=== PATIENT | female | born 1945 | race American Indian/Alaskan Native ===

== ENCOUNTER 2022-07-18 15:33 | Emergency (ER) | payer MEDICARE ==
[2022-07-18 16:38] VITALS: BP 161/73
--- NOTE | 2022-07-18 17:34 | XRay Report ---
RIGHT FOOT 3 VIEWS INDICATION / CLINICAL INFORMATION: pain, redness. COMPARISON: None available. FINDINGS: BONES / JOINT(S): No acute fracture or subluxation. Moderate bunion first metatarsal head medially. M ild DJD first metatarsophalangeal joint. Chronic deformity at the tuft of the distal phalanx of the f irst digit. Underlying osteopenia. SOFT TISSUES: Atherosclerotic vascular calcification. ADDITIONAL FINDINGS: Hardware at the medial and lateral malleoli. Signer Name: Naveen Lane MD Signed: 07/18/2022 5:30 PM Workstation Name: [id number]
--- NOTE | 2022-07-18 18:04 | Vascular Lab Report ---
DUPLEX DOPPLER LOWER EXTREMITY VEINS, RIGHT INDICATION: pain, foot cold to touch. TECHNIQUE: Duplex doppler imaging was performed through the veins of the right lower extremity using venous comp ression and other maneuvers. COMPARISON: No relevant prior imaging study available. FINDINGS: Right Common femoral vein: Negative. Right Superficial femoral vein: Negative. Right Popliteal vein: Negative. Right Calf veins: Negative. Additional findings: None.. IMPRESSION: Negative for DVT. Signer Name: Naveen Lane MD Signed: 07/18/2022 6:00 PM Workstation Name: [id number]
[2022-07-18 18:36] LABS: INR 0.9 (0.87-1.13)
[2022-07-18 18:37] LABS: Partial Thromboplastin Time 26.8 Sec. (24.2-36.6)
[2022-07-18 18:40] LABS: Hematocrit 46.7 % (30.3-42.9); Hemoglobin 14.3 gm/dl (10.1-14.3); Mean Corpuscular HGB Conc 31 % (30-34); Mean Corpuscular Volume 89 fl (79-97); Platelet Count 240 K/mm3 (140-440); Red Blood Count 5.26 M/mm3 (3.65-5.03); Red Cell Distribution Width 22.7 % (13.2-15.2)
[2022-07-18 19:12] LABS: Anisocytosis 1+; Platelet Estimate Consistent w Auto; Total Cells Counted 100
[2022-07-18 19:49] LABS: Alanine Aminotransferase 13 units/L (7-56); Albumin 4.9 g/dL (3.9-5); Blood Urea Nitrogen 16 mg/dL (7-17); Calcium 9.6 mg/dL (8.4-10.2); Hemolysis Index 30
[2022-07-18 19:56] LABS: BUN/Creatinine Ratio 23
[2022-07-18] MEDS ORDERED: IBUPROFEN 400 MG TAB PO ONE (23:00)
[2022-07-18] MEDS ORDERED: ACETAMINOPHEN 325 MG TAB PO ONE (23:00)
--- NOTE | 2022-07-18 23:01 | Emergency Department Report ---
ED General Adult HPI - General Chief complaint: Extremity Problem,Nontraumatic Stated complaint: RT FOOT SWOLLEN PUI?: No Time Seen by Provider: 07/18/22 22:55 Source: patient Mode of arrival: Wheelchair Limitations: No Limitations - History of Present Illness Initial comments: This is a pleasant 77-year-old female came in today with concerns of right lower extremity swelling and pain. Patient denies any other trauma or injury. Patient's that this has been going for the past 2 weeks. Patient also states her right lower extremity feels cold. Patient denies any new symptoms denies fever chill night sweat dizziness blurred vision lightheadedness headache tinnitus ear pain runny nose sore throat loss of taste loss of smell chest pain palpitation short breath cough abdominal pain nausea vomiting diarrhea constipation new rash and heat or cold intolerance. Severity scale (0 -10): 9 - Related Data Previous Rx's Medication Instructions Recorded Last Taken Type ALBUTEROL Inhaler(NF) [VENTOLIN 1 puff IH Q4H PRN 30 Days inha 10/25/18 Unknown Rx Inhaler(NF)] Budesoni/Formotero 160-4.5(Nf) 2 puff IH BID 30 Days inha 10/25/18 Unknown Rx [Symbicort 160-4.5 (Nf)] amLODIPine 10 mg PO QDAY #30 tablet 10/25/18 Unknown Rx levoFLOXacin [Levaquin TAB] 750 mg PO QDAY #4 tablet 10/25/18 Unknown Rx predniSONE [Deltasone] 50 mg PO QDAY #5 tab 10/25/18 Unknown Rx metroNIDAZOLE [Flagyl] 500 mg PO Q12HR #10 tab 11/09/18 Unknown Rx Acetaminophen/Codeine [Tylenol 1 tab PO Q6H PRN #9 tab 07/18/22 Unknown Rx /Codeine # 3 tab] Allergies Allergy/AdvReac Type Severity Reaction Status Date / Time morphine Allergy Itching Verified 12/22/15 09:56 ED Review of Systems ROS: Stated complaint: RT FOOT SWOLLEN Other details as noted in HPI Comment: All other systems reviewed and negative Constitutional: no symptoms reported, see HPI Eyes: as per HPI ENT: as per HPI Respiratory: no symptoms reported, see HPI Cardiovascular: as per HPI Endocrine: no symptoms reported, see HPI Gastrointestinal: as per HPI, abdominal pain Musculoskeletal: as per HPI Skin: as per HPI Neurological: as per HPI Psychiatric: as per HPI Hematological/Lymphatic: as per HPI ED Past Medical Hx - Past Medical History Previous Medical History?: Yes Hx Hypertension: No Hx CVA: No Hx Heart Attack/AMI: No Hx Congestive Heart Failure: No Hx Diabetes: No Hx Deep Vein Thrombosis: No Hx Pulmonary Embolism: No Hx GERD: No Hx Liver Disease: No Hx Renal Disease: No Hx Sickle Cell Disease: No Hx Arthritis: Yes Hx Headaches / Migraines: No Hx Seizures: No Hx Kidney Stones: No Hx Psychiatric Treatment: No Hx Asthma: No Hx COPD: Yes Hx Tuberculosis: No Hx Dementia: No Hx HIV: No Additional medical history: pneumonia Dec 2015, OCT 22 2018 - Surgical History Hx Coronary Stent: No Hx Open Heart Surgery: No Hx Pacemaker: No Hx Internal Defibrillator: No Hx Cholecystectomy: No Hx Appendectomy: No Hx Breast Surgery: No Additional Surgical History: hysterectomy. left breast biopsy - Social History Smoking Status: Current Some Day Smoker Substance Use Type: None - Medications Home Medications: Home Medications Medication Instructions Recorded Confirmed Last Taken Type ALBUTEROL Inhaler(NF) [VENTOLIN 1 puff IH Q4H PRN 30 Days inha 10/25/18 Unknown Rx Inhaler(NF)] Budesoni/Formotero 160-4.5(Nf) 2 puff IH BID 30 Days inha 10/25/18 Unknown Rx [Symbicort 160-4.5 (Nf)] amLODIPine 10 mg PO QDAY #30 tablet 10/25/18 Unknown Rx levoFLOXacin [Levaquin TAB] 750 mg PO QDAY #4 tablet 10/25/18 Unknown Rx predniSONE [Deltasone] 50 mg PO QDAY #5 tab 10/25/18 Unknown Rx metroNIDAZOLE [Flagyl] 500 mg PO Q12HR #10 tab 11/09/18 Unknown Rx Acetaminophen/Codeine [Tylenol 1 tab PO Q6H PRN #9 tab 07/18/22 Unknown Rx /Codeine # 3 tab] ED Physical Exam - General Limitations: No Limitations General appearance: alert, in no apparent distress - Head Head exam: Present: atraumatic, normocephalic, normal inspection - Eye Eye exam: Present: normal appearance, PERRL, EOMI Pupils: Present: normal accommodation - ENT ENT exam: Present: normal exam - Neck Neck exam: Present: normal inspection, full ROM - Respiratory Respiratory exam: Present: normal lung sounds bilaterally - Cardiovascular Cardiovascular Exam: Present: regular rate, normal rhythm, normal heart sounds - GI/Abdominal GI/Abdominal exam: Present: soft - Extremities Exam Extremities exam: Present: normal inspection, full ROM, normal capillary refill - Expanded Lower Extremity Exam Right Hip exam: Present: full ROM Upper Leg exam: Present: normal inspection Knee exam: Present: normal inspection Lower Leg exam: Present: normal inspection Ankle exam: Present: normal inspection Foot/Toe exam: Present: normal inspection Neuro vascular tendon exam: Present: no vascular compromise (dorsal pedis pulse intact of right.) - Back Exam Back exam: Present: normal inspection, full ROM - Neurological Exam Neurological exam: Present: alert, oriented X3, CN II-XII intact - Psychiatric Psychiatric exam: Present: normal affect, normal mood - Skin Skin exam: Present: warm, normal color ED Course Vital Signs 07/18/22 16:32 Temperature 98.6 F Pulse Rate 102 H Respiratory 18 Rate Blood Pressure 161/73 [Left] O2 Sat by Pulse 96 Oximetry ED Medical Decision Making - Lab Data Result diagrams: 07/18/22 17:57 07/18/22 19:05 Critical care attestation.: If time is entered above; I have spent that time in minutes in the direct care of this critically ill patient, excluding procedure time. ED Disposition Clinical Impression: Foot pain, right Disposition: 01 HOME / SELF CARE / HOMELESS Is pt being admited?: No Does the pt Need Aspirin: No Condition: Stable Instructions: Foot Pain Additional Instructions: Make a follow-up appoint with primary care provider to be seen within 3 days for further outpatient evaluation. Prescriptions: Acetaminophen/Codeine [Tylenol /Codeine # 3 tab] 1 tab PO Q6H PRN #9 tab PRN Reason: Pain , Severe (7-10) Time of Disposition: 23:00
== END 2022-07-19 12:50 | disposition home or self-care (01) ==
LOC: ED 15:33
DX: M79.671 Pain in right foot (principal); F17.200 Nicotine dependence, unspecified, uncomplicated; Z88.5 Allergy status to narcotic agent
CPT/HCPCS: 36415; 80053; 85007; 85025; 85610; 85730; 99284